=== PATIENT | female | born 2000 | race Caucasian/White ===

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

== ENCOUNTER 2021-04-04 14:21 | Emergency (ER) | payer BC, MEDICAID, SELFPAY ==
[2021-04-04 15:00] VITALS: BP 140/74; PULSE 80; RESP 16; TEMP 36.7; O2SAT 100
--- NOTE | 2021-04-04 15:03 | ED.GENADUL_ITS ---
Discharge Plan Disposition Patient Disposition: OTHER Condition: Stable Discharge Details Clinical Impression: Anxiety, Depressive disorder Primary Care Provider: Valorie Tapia ED Provider: Imelda Adames Home Meds and New Rx's Prescriptions: Continued L norgest/e.estradiol-e.estrad [Seasonique] 0.15 mg-30 mcg (84)/10 mcg (7) tablets,dose pack,3 month 1 tab PO DAILY Qty: 91 RF: 3 cholecalciferol (vitamin D3) 1,000 unit capsule 1,000 unit PO DAILY RF: 0 amitriptyline 10 mg tablet 10 mg PO QHS Qty: 30 RF: 1 (DME) Space Chamber Plus 1 EACH spacer Miscellaneous PRN Qty: 1 RF: 0 albuterol sulfate [ProAir HFA] 90 mcg/actuation HFA aerosol inhaler 1 - 2 puff Inhalation Q4H PRN Qty: 18 RF: 1 fluoxetine 20 mg capsule 20 mg PO DAILY Qty: 90 RF: 1 Discharge Instructions Instructions: Depression (ED), Anxiety (ED) Additional Instructions: Your labs and evaluation are reassuring here today. Plan is for you to be transferred to the care bed the time being for continued treatment and monitoring of your anxiety and depression. Please continue with your medications as previously prescribed. Please call primary care tomorrow to discuss your increased dose of fluoxetine. If you develop thoughts of self-harm or other new/worsening symptoms please seek care urgently once again. Referrals: Valorie Tapia [Primary Care Provider] - Medical Decision Making Patient is a pleasant 20-year-old female, brought in by mom, with chief complaint of increased anxiety and depression. She reports that this has been increasing over the past calendar year. 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 She did feel home. No focal structure causing an increase in her symptoms. She is followed by her primary care. States that she did have her fluoxetine increased recently from 20 mg to 40 mg daily. She denies being sexually active. Denies any drug or alcohol use. States that she has been vomiting for the past several months. Was recently referred to GI. She is actually still producing vomiting. She is unable to tell me fully if she is doing this secondary to nausea or concerns about her weight. Sounds like this may be a mix of both. Patient presents for mental health evaluation. She states that she occasionally will think about harming herself but that ultimately did not want to. She did not have a plan. She has been working with mental health would like to continue to do so. She denies any hallucinations. No thoughts of harming others. Denies any open wounds or attempt. No previous hospitalizations for mental health. Has had 2 concussions. She denies any continued headache. On exam, patient is anxious. She appears nontoxic. Vital signs are stable. Will consult with mental health. Patient is with mom. Mom reports that she is concerned that she stopped taking care. With much and stop on to work. Patient reports that she does not really like her child but that she is typically not motivated to go. Mom is also concerned that she stopped showering care of her symptoms much. States that she is beginning to be financially stressed. I am concerned with the vomiting for the past several month that she may have an electrolyte abnormality. Plan for baseline labs. She is denying any threat to herself or others intermittently and typically she has fair judgment. We will have mental health be involved evaluate the patient as well. I am concerned that she is not having good personal care as was expressed by mom. Do not feel the patient needs a CPSO at this time as she is not a threat to herself or others. Has good interaction with mom who is at bedside. Patient evaluated by mental health. They discussed treatment options. Here that she would benefit the most from a care bed. Patient reported that she had an increase in fluoxetine but found that she had actually done this herself. Patient had previously been on 40 mg but has been at 20 mg the past few years. Recently however, she increased to 40 without discussing first with her primary care. Patient was evaluated by primary care few days ago for her increased depression, anxiety as well as issues with IBS. At that time, patient was started on amitriptyline 10 mg nightly. Mental health is concerned that this medication has not had an time to set in. Patient does do better in the presence of others and her roommate had recently gone off to college. I did help feels that with the patient is not imminent risk to herself or others, she would benefit from placement to care bed and patient is in agreement with this plan. Will obtain rapid Covid testing. Bed is available for patient to be able to go to the care bed this evening. Passed along to that I am concerned that she may have an undiagnosed eating disorder. Patient not very forth coming with this, I asked it be explored more with . Labs reviewed. Patient with slight white count of 11.25. However, she denies any infectious symptoms, do not see findings on physical exam suggests acute infection. CMP without significant endocrinology. TSH within normal limits. Urinalysis does show WBCs, few epithelial cells and many bacteria. However, the patient is denying any symptoms associated with a UTI. Hold off on testing until the culture has come back. UDS is negative. Covid is negative. Patient will be discharged to care bed. Discussed plan at length with patient and mom. REturn precautions discussed. All of their quedstions and concerns were addressed, they are in agreement with this plan. HPI General Mode of arrival: ambulatory . Date/Time Provider Initiated Documentation: 04/04/21 14:30 . Limitations to Documentation: no limitations . Information obtained by: patient, family (mom), RN notes reviewed and old records reviewed . History of Present Illness 20 year old F presents to the emergency department with the chief complaint of increased anxiety and depr ession, described as moderate (denies SI or HI), Quality is described as other (denies BAE or other pain), Patient started experiencing this year(s) (1) and it has been constant (progressively worsening). other things that improve symptom(s), (stayed with family over the weekend and felt improved) No exacerbating factors reported . Patient notes no other symptoms.. Patient did receive the following treatments prior to arrival, other (antidepressants) Related Data Home Medications Medication Instructions Recorded Confirmed Space Chamber Plus #1 05/24/17 12/28/20 cholecalciferol (vitamin D3) 25 1,000 unit PO DAILY 07/24/18 12/28/20 mcg (1,000 unit) capsule albuterol sulfate 90 mcg/actuation 1 - 2 puff INHALATION Q4H PRN #18 02/20/19 12/28/20 aerosol inhaler gm L norgest/E estradiol-E estrad 1 tab PO DAILY #91 dose pk 05/20/20 03/31/21 0.15 mg-30 mcg (84)/10 mcg(7) tabs,3mos fluoxetine 20 mg capsule 20 mg PO DAILY #90 cap 02/25/21 amitriptyline 10 mg tablet 10 mg PO QHS #30 tab 03/31/21 03/31/21 Previous Rx's Medication Instructions Recorded albuterol sulfate 90 mcg/actuation 1 - 2 puff INHALATION Q4H PRN #18 02/20/19 aerosol inhaler gm L norgest/E estradiol-E estrad 1 tab PO DAILY #91 dose pk 05/20/20 0.15 mg-30 mcg (84)/10 mcg(7) tabs,3mos fluoxetine 20 mg capsule 20 mg PO DAILY #90 cap 02/25/21 amitriptyline 10 mg tablet 10 mg PO QHS #30 tab 03/31/21 Allergies Allergy/AdvReac Type Severity Reaction Status Date / Time No Known Allergies Allergy Verified 04/04/21 19:21 General MARTA: 3 Review of Systems Constitutional Constitutional: Reports as per HPI, Denies chills, Denies fatigue, Denies fever(s) and Denies headache(s) Eyes Eyes: Denies change in vision and Reports other (anisocoria, reported to be baseline) ENT Ears, Nose, Mouth, and Throat: Denies headache(s) Cardiovascular Cardiovascular: Reports as per HPI, Denies chest pain and Denies dyspnea Respiratory Respiratory: Reports as per HPI, Denies cough and Denies dyspnea Gastrointestinal Gastrointestinal: Reports as per HPI, Denies abdominal pain, Denies change in bowel habits, Reports nausea (chronic) and Reports vomiting (self induced) Integumentary/Breasts Skin/Breast: Reports as per HPI and Denies rash Neurologic Neurologic: Reports abnormal movements, Denies confusion and Denies headache(s) Psychiatric Psychiatric: Reports abnormal sleep pattern (increased sleep), Denies change in appetite, Denies confusion, Reports depression, Denies auditory hallucinations, Reports anhedonia, Reports mood swings, Denies panic attacks, Denies paranoia, Denies visual hallucinations, Denies homicidal ideation and Denies suicidal ideation Endocrine Endocrine: Denies fatigue PFSH Medical History (Updated 04/04/21 @ 19:15 by ALECIA Vasquez) Anxiety Depression Exercise induced bronchospasm Learning problem HAS 504 AT SCHOOL Vision problem WEARS CONTACTS Family History Sister Seizure disorder BIO MOTHER Family history unknown Diabetes Seizure disorder Other Mental disorder Social History Smoking/Tobacco Use Status: Never Second Hand Exposure: No Smoking risk assessment performed?: Yes Alcohol Intake: never Drug use: Never Substance use type: does not use Adopted: Yes (At age 10) Household members: friend(s) Communication Needs: Corrective Lenses Pets and animals: Yes Pets and animals: dog(s) Seatbelt use: always Working smoke detector in home: Yes Fire extinguisher in home: Yes Carbon monox detector in home: Yes Additional Social history: pt is not alone, not able to answer Female Reproductive History Menstrual control method: pills History History 0 Para Hx # Term Pregnancies Multiple births Hx # Pregnancies Ectopic pregnancies AB induced Hx Number of Living Children AB spontaneous Exam Const General: cooperative, healthy appearing, comfortable, no acute distress, well developed, well groomed and anxious Nutritional Appearance: well nourished and overweight Orientation: alert and awake Eyes General: appearance normal, both eyes and all related structures (anisocoria) Resp Effort & Inspection: normal respiratory effort, able to speak in complete sentences and no respiratory distress Auscultation: clear to auscultation bilaterally, no rales, no rhonchi and no wheezes Cardio Rate: regular rate Rhythm: regular rhythm Heart Sounds: S1 normal and S2 normal Skin General skin exam: no rashes or lesions noted Trauma: no lacerations or abrasions Neuro General: patient alert and patient awake Cognition: normal cognition Speech: speech normal Gait: normal gait Psych Appearance: grossly normal and well kempt Mental Status: mental status grossly normal Speech and Movement: speech and movement normal Mood: congruent mood Affect: anxious affect Attitude: cooperative Thought Process: normal Thought Content: normal Insight: fair Judgment: fair
[2021-04-04 16:16] LABS: HCT 41.9 % (36.0-46.0); HGB 13.6 g/dL (11.2-15.7); MCH 29.3 pg (27.0-33.0); MCHC 32.5 % (32.0-36.0); MCV 90.3 fL (80-95); MPV 8.6 fL (8.0-11.0); Platelet Count 426 10^3/uL (130-400); RBC 4.64 10^6/uL (3.93-5.22); WBC 11.25 10^3/uL (4.4-10.8)
[2021-04-04 16:47] LABS: ALT 25 U/L (14-59); AST 14 U/L (15-37); Albumin 3.8 g/dL (3.4-5.0); Alkaline Phosphatase 67 U/L (46-116); Anion Gap 10.9 mmol/L (3-11); BUN 10 mg/dL (7-18); Bilirubin, Total 0.2 mg/dL (0.2-1.0); CO2 27.1 mmol/L (21.0-32.0); CREATININE 0.8 mg/dL (0.55-1.02); Calcium 9.6 mg/dL (8.5-10.1); Chloride 101 mmol/L (98-107); Glucose 74 mg/dL (74-106); Potassium 3.9 mmol/L (3.5-5.1); Sodium 139 mmol/L (136-145); TSH (W/Ref FT4) 3.02 uIU/mL (0.52-4.13); Total Protein 8.8 g/dL (6.4-8.2)
[2021-04-04 17:55] LABS: Bilirubin Negative (Negative); Blood Trace-intact (Negative); Clarity Cloudy (Clear); Glucose Negative (Negative); Ketones Negative (Negative); Leukocyte Esterase Trace (Negative); Nitrite Negative (Negative); Specific Gravity 1.025 (1.005-1.025); Urobilinogen 0.2 EU/dL (Up TO 0.2)
[2021-04-04 18:01] LABS: Bacteria Many HPF (Negative); C & S Indicated? Yes; Casts Negative LPF (Negative); Crystals Negative HPF (Negative); Epithelial Cells Few HPF (Negative); Mucus Negative (Negative)
[2021-04-04 18:03] LABS: Source Nasal/Nares
[2021-04-04 18:05] LABS: *AMPHETAMINES SCREEN URINE Negative (Negative); *BARBITURATES SCREEN URINE Negative (Negative); *BENZODIAZEPINES SCREEN URINE Negative (Negative); Cannabinoids THC Negative (Negative); Cocaine Screen,Urine Negative (Negative); METHADONE URINE SCREEN Negative (Negative); OPIATES URINE SCREEN Negative (Negative)
[2021-04-04 18:18] LABS: Tricyclic Antidepressants Negative (Negative)
[2021-04-04 18:57] LABS: COVID-19 PCR Negative (Negative)
== END 2021-04-04 20:29 | disposition other institution (70) ==
PROVIDERS: Emergency Provider Physician Assistant; PCP Nurse Practitioner Pediatrics
DX: F41.8 Other specified anxiety disorders (principal); Z20.822 Contact with and (suspected) exposure to COVID-19; Z03.818 Encounter for observation for suspected exposure to other biological agents ruled out
CPT/HCPCS: 36415; 80053; 80307; 81025; 85027; 87635; 99283; 81003; 81015; 84443; 87086

== ENCOUNTER 2021-10-12 15:26 | Outpatient (CLI) | payer BC, MEDICAID, SELFPAY ==
[2021-10-12 16:03] LABS: Calculated LDL 126 mg/dL (<100); Cholesterol 224 mg/dL (<200); HDL Cholesterol 50 mg/dL (40-60); Triglyceride 240 mg/dL (<150)
== END 2021-10-12 15:27 | disposition home or self-care (01) ==
LOC: LBO 15:32
PROVIDERS: PCP Nurse Practitioner Pediatrics; Visit Provider Nurse Practitioner Pediatrics
DX: E78.5 Hyperlipidemia, unspecified (principal)
CPT/HCPCS: 36415; 80061

== ENCOUNTER 2021-10-25 19:59 | Emergency (ER) | payer BC, MEDICAID, SELFPAY ==
[2021-10-25] VITALS (98 sets, daily range): BP systolic 109–150; BP diastolic 68–94; PULSE 82–116; RESP 11–31; TEMP 36.5–36.6; O2SAT 96–100
--- NOTE | 2021-10-25 20:00 | DI.CT_ITS ---
Exam(s) CT ABDOMEN PELVIS W EXAM: CT ABDOMEN PELVIS W INDICATION: right and left lower abdominal pain, vomiting. COMPARISON: No exams were available for comparison TECHNIQUE: FINDINGS: CT examination of the abdomen and pelvis was performed with a bolus infusion of 80 cc of Omnipaque 35 0. Images obtained through the lung bases are unremarkable. The liver is unremarkable in appearance. Gallbladder and bile ducts are CT normal. Pancreas appears normal. Spleen is unremarkable in appearance. Adrenals appear normal. The kidneys are unremarkable except for a tiny left renal cyst with no evidence of hydronephrosis, ne phrolithiasis, or renal mass.. Urinary bladder unremarkable. Abdominal aorta is of normal diameter and no major vascular abnormality is seen. No abdominal wall hernia. No abdominal or pelvic adenopathy. HOSPICE CONSULTANT structures appear intact. Appendix is normal. No evidence of diverticulitis or bowel obstruction. IMPRESSION: Negative CT examination of the abdomen and pelvis. RADIATION DOSE DELIVERED: 1,425.23mGy.cm Total DLP 1,425.23mGy.cm Total DLP !Error CTDIvol RADIATION OPTIMIZATION: All CT scans at this facility use at least one of these dose optimization te chniques: automated exposure control; mA and/or kV adjustment per patient size (includes targeted exa ms where dose is matched to clinical indication); or iterative reconstruction.
--- NOTE | 2021-10-25 20:08 | DI.CT_ITS ---
Exam(s) CT HEAD WO/W EXAM: CT HEAD WO/W CLINICAL HISTORY: headache, vomiting, altered. TECHNIQUE: Imaging Protocol: Axial computed tomography images with coronal and sagittal reformatted images were created and reviewed Post contrast scanning was also performed following intravenous infusion of 100 cc of Omnipaque 350. COMPARISON: CT CT HEAD WO from 05/28/2020 FINDINGS: The ventricular system is normal in appearance. There is no evidence of an intracranial mass lesion or enhancing lesion. No evidence of acute intracranial hemorrhage, mass effect, or midline shift. The orbital structures are unremarkable. The temporal bone structures appear intact. Calvarium: Normal. Visualized Paranasal sinuses/Mastoids: Clear. IMPRESSION: Normal cranial CT. RADIATION DOSE DELIVERED: 1,703.94mGy.cm Total DLP 1,703.94mGy.cm Total DLP !Error CTDIvol DATA REPOSITORY: All CT scans at this facility are submitted to the National Radiology Data Registry (NRDR) Dose Index Registry (DIR) with the [employer] ([employer]). RADIATION OPTIMIZATION: All CT scans at this facility use at least one of these dose optimization te chniques: automated exposure control; mA and/or kV adjustment per patient size (includes targeted exa ms where dose is matched to clinical indication); or iterative reconstruction.
--- NOTE | 2021-10-25 20:12 | W.ED.GENAD ---
Discharge Plan Disposition Patient Disposition: HOME Condition: Good Discharge Details Clinical Impression: Post concussion syndrome, Nausea & vomiting Primary Care Provider: Valorie Tapia ED Provider: Anatoliy Pettit Home Meds and New Rx's Prescriptions: Continued cholecalciferol (vitamin D3) 1,000 unit capsule 1,000 unit PO DAILY 0RF amitriptyline 25 mg tablet 25 mg PO QHS Qty: 30 5RF Rx Instructions: take one tablet once a day at bedtime fluoxetine 20 mg capsule 20 mg PO DAILY Qty: 30 1RF Rx Instructions: take 1 capsule daily along with fluoxetine 40 mg L norgest/e.estradiol-e.estrad [Seasonique] 0.15 mg-30 mcg (84)/10 mcg (7) tablets,dose pack,3 month 1 tab PO DAILY Qty: 182 0RF fluoxetine 40 mg capsule 40 mg PO DAILY Qty: 30 1RF Rx Instructions: take one capsule once a day Discharge Instructions Instructions: Acute Nausea and Vomiting (ED) Additional Instructions: At this time your CAT scan of your head and abdomen are negative. Your laboratory work-up is reassuring. I feel that a component of your symptoms is likely secondary to your previous concussions. You likely have a mild virus that is causing your symptoms or it was from something that you ate today. Please take Tylenol or Motrin as needed to help with your headache if it returns. Please take the Zofran as needed for nausea. If you notice any worsening of your symptoms, or any new symptoms such as vomiting, diarrhea, fever, chills, shortness of breath, chest pain, numbness, weakness, or fainting , please return immediately to the emergency department for reevaluation. Please follow up with your primary care provider as soon as possible for reassessment and reevaluation. As always, it was a pleasure participating in your medical care today. Stand Alone Forms: Work Release Referrals: Valorie Tapia NP [Primary Care Provider] - Medical Decision Making This is a 21-year-old female with a past medical history of high cholesterol, irritable bowel syndrome, depression, anxiety, who is currently on control, who presents today for evaluation of abdominal pain vomiting and headache. Patient's friend is at bedside. They state that they went to [place] [employer] today and were shopping, they had a normal day, and went out to eat at the [employer], and then on the drive back from work on weight the patient started vomiting had few episodes of vomiting. She became slightly altered during that time. She was brought to the ER for further evaluation. Currently the patient admits to pain in her lower abdomen which she describes as sharp and constant. She describes a mild headache as well. This is not the worst headache in her life. States that she does have a history of migraines but this feels slightly different. Headache is achy in nature, and throughout the entirety of the head. She denies any significant neck pain. She denies any chest pain, numbness, tingling, or weakness. She denies any vision changes. She denies any drug or alcohol use. No other complaints at this time. No other modifying. Of note the patient's friend states that she ate the same food and feels asymptomatic. Physical exam demonstrates some chronic anisocoria of the eyes, no nuchal rigidity. Mild lower abdominal tenderness. Patient is slightly out of it. She responds all questions, follows all commands, and shows no focal neurologic deficits however she does not know the year or who the president is. Differential is broad, but includes dehydration, migraine headache, less likely brain tumor, gastroenteritis, or other abnormality. Drug use is of concern but less likely given the negative history. We will rehydrate, get a CT scan of the head and abdomen, monitor closely and reassess. 11:50 PM Patient's laboratory work-up has returned notably unremarkable, no white count, bandemia or left shift. Blood pressure is normalized, heart rate has normalized, and on reassessment the patient states that she feels much better. States she only has a very mild headache, and her abdominal pain is resolved. Electrolytes stable, VBG stable, ammonia normal. Thyroid function demonstrates an elevated TSH however her free T4 is normal. Urine is negative for any evidence of infection. Alcohol level is negative, COVID/flu/RSV is negative. On reassessment the patient's mentation is notably improved. I did contact the patient's mother, for additional historical context that the patient was not able to had. Patient did give me permission to do this. And upon discussion with the mother there is also history of a notable closed head injury a few years ago at lacrosse. Since then the patient has had notable episodes where she gets hit in the head lightly, moves her head too quickly, or has some other mild illness going on that causes her to become confused, did not know the year, the president, or other components. She also develops chronic headaches and these episodes. This showed significant light on the current presentation that the patient is demonstrating. At this time with a notable improvement of her symptoms, the benign work-up, no meningeal signs or clinical evidence of meningitis, I do feel that the patient is safe for discharge. Patient does agree with this as well. She will go home with a roommate and both the roommate the patient feel comfortable with this. Patient was able to tolerate p.o. well here. Diagnosis is likely mild gastroenteritis either viral or secondary to something that showed. Likely worsened by the patient history of closed head injury frequent mild exacerbations of those previous concussion symptoms. Discussed red flags which return. Recommend close follow-up with PCP. I have extensively reviewed the treatment plan and discharge instructions with the patient and their family. I have addressed all patient concerns at this time. The patient and family was made aware of what symptoms to monitor for that would warrant a return to the emergency department. Discussed the plan with the patient and family, they demonstrate verbal understanding and agreement with our assessment and plan at this time. The documentation in this chart was dictated using [employer] dictation software. Please excuse any dictation errors. FINDINGS: Brain: No acute intracranial hemorrhage, mass-effect, midline shift, or extra-axial collection is seen. The michelle white matter differentiation appears preserved. No enhancing mass or other abnormal intracranial enhancement is seen following contrast administration. Cerebral ventricles: The ventricular system and basilar cisterns appear appropriate in size and configuration. Paranasal sinuses: The visualized paranasal sinuses appear well-aerated. Mastoid air cells: The mastoid air cells appear well-aerated. Auditory system: The middle ear cavities appear clear. Orbital cavities: The globes and intraorbital structures appear grossly intact. Bones/joints: The bony calvarium appears intact. No depressed skull fracture is seen. Soft tissues: No significant scalp lesion is seen. IMPRESSION: No acute intracranial abnormality seen. Thank you for allowing us to participate in the care of your patient. Dictated and Authenticated by: Thomas Saba MD 10/25/2021 9:56 PM Eastern Time ([place] & [place]) FINDINGS: Liver: No mass. Gallbladder and bile ducts: No calcified stones. No ductal dilation. Pancreas: No ductal dilation. No masses. Spleen: No splenomegaly or focal lesions. Adrenal glands: No mass. Kidneys and ureters: Benign-appearing small left renal cysts. No renal masses or hydronephrosis bilaterally. Stomach and bowel: No obstruction. No mucosal thickening. Appendix: No evidence of appendicitis. Intraperitoneal space: No free air. No significant fluid collection. Arteries: Unremarkable. No abdominal aortic aneurysm. Lymph nodes: No significantly enlarged lymph nodes. Urinary bladder: Unremarkable as visualized. Reproductive: Unremarkable as visualized. Bones/joints: No acute fracture. Soft tissues: No suspicious lesions. IMPRESSION: No acute findings. Thank you for allowing us to participate in the care of your patient. Dictated and Authenticated by: Kamla Slade MD 10/25/2021 10:22 PM Eastern Time ([place] & [place]) HPI General Date/Time Provider Initiated Documentation: 10/25/21 20:01. HPI Narrative: This is a 21-year-old female with a past medical history of high cholesterol, irritable bowel syndrome, depression, anxiety, who is currently on control, who presents today for evaluation of abdominal pain vomiting and headache. Patient's friend is at bedside. They state that they went to [place] today and were shopping, they had a normal day, and went out to eat at the [employer], and then on the drive back from work on weight the patient started vomiting had few episodes of vomiting. She became slightly altered during that time. She was brought to the ER for further evaluation. Currently the patient admits to pain in her lower abdomen which she describes as sharp and constant. She describes a mild headache as well. This is not the worst headache in her life. States that she does have a history of migraines but this feels slightly different. Headache is achy in nature, and throughout the entirety of the head. She denies any significant neck pain. She denies any chest pain, numbness, tingling, or weakness. She denies any vision changes. She denies any drug or alcohol use. No other complaints at this time. No other modifying. Of note the patient's friend states that she ate the same food and feels asymptomatic. Related Data Home Medications Medication Instructions Recorded Confirmed cholecalciferol (vitamin D3) 25 1,000 unit PO DAILY 07/24/18 10/25/21 mcg (1,000 unit) capsule L norgest/E estradiol-E estrad 1 tab PO DAILY #182 dose pk 05/26/21 10/25/21 0.15 mg-30 mcg (84)/10 mcg(7) tabs,3mos (Seasonique) fluoxetine 40 mg capsule 40 mg PO DAILY #30 cap 08/24/21 10/25/21 amitriptyline 25 mg tablet 25 mg PO QHS #30 tab 10/05/21 10/25/21 fluoxetine 20 mg capsule 20 mg PO DAILY #30 cap 10/05/21 10/25/21 Previous Rx's Medication Instructions Recorded L norgest/E estradiol-E estrad 1 tab PO DAILY #182 dose pk 05/26/21 0.15 mg-30 mcg (84)/10 mcg(7) tabs,3mos (Seasonique) fluoxetine 40 mg capsule 40 mg PO DAILY #30 cap 08/24/21 amitriptyline 25 mg tablet 25 mg PO QHS #30 tab 10/05/21 fluoxetine 20 mg capsule 20 mg PO DAILY #30 cap 10/05/21 Allergies Allergy/AdvReac Type Severity Reaction Status Date / Time No Known Allergies Allergy Verified 10/25/21 20:56 General Stated Complaint: Nausea/Vomit/Diar MARTA: 3 Review of Systems All systems reviewed & are unremarkable except as noted in HPI and below PFSH All Active Problems (Updated 10/25/21 @ 23:17 by Anatoliy Pettit DO) Post concussion syndrome (Acute) Nausea & vomiting (Acute) Menorrhagia with regular cycle (Acute) History of IBS (Acute) Disrupted sleep-wake cycle (Acute) Snoring (Acute) Adjustment reaction with anxiety and depression (Acute) Hyperlipidemia (Chronic) total 278 LDL 188 and HDL 64 12/2020 Hyperpigmentation (Acute) sib has CARP Low back pain (Acute) Hematochezia (Acute) Diarrhea (Acute) High serum low density lipoprotein (LDL) cholesterol (Acute) Exercise induced bronchospasm (Acute) Routine child health exam (Acute 11/17/16) Reactive attachment disorder (Acute 03/04/14) Ongoing therapy Depressive disorder (Acute 10/22/15) Back pain (Acute 03/04/14) BMI (body mass index), pediatric, 95-99% for age (Acute 03/04/14) Anxiety (Acute 10/22/15) Medical History (Updated 10/25/21 @ 23:17 by Anatoliy Pettit DO) Anxiety Depression Learning problem HAS 504 AT SCHOOL Vision problem WEARS CONTACTS Family History Sister Seizure disorder BIO MOTHER Family history unknown Diabetes Seizure disorder Other Mental disorder Social History Smoking/Tobacco Use Status: Never Second Hand Exposure: No Smoking risk assessment performed?: Yes Alcohol Intake: never Drug use: Never Substance use type: does not use Adopted: Yes (At age 10) Household members: friend(s) Communication Needs: Corrective Lenses Pets and animals: Yes Pets and animals: dog(s) Seatbelt use: always Working smoke detector in home: Yes Fire extinguisher in home: Yes Carbon monox detector in home: Yes Additional Social history: pt is not alone, not able to answer Female Reproductive History Menstrual control method: pills History History 0 Para Hx # Term Pregnancies Multiple births Hx # Pregnancies Ectopic pregnancies AB induced Hx Number of Living Children AB spontaneous Exam Narrative Exam Narrative: 1.Const: Well-nourished, Well-developed, appearing stated age 2.Eyes: PRRL, however the patient does demonstrate slight chronic anisocoria with dilation of the left pupil which is old and not new. No conjunctival injection, and symmetrical lids. 3.ENT: Atraumatic external nose and ears. Moist MM. Neck: Symmetric, trachea midline, No thyromegaly. Patient demonstrates good movement of cervical neck. There is no nuchal rigidity, no nuchal tenderness. Patient is able to flex the neck without any difficulty or significant pain. Negative Kernig's and Brudzinski sign. 4.CVS: +S1/S2, No murmurs or gallops. Peripheral pulses 2+ and equal in all extremities. Brisk capillary refill in all extremities. 5.RESP: Unlabored respiratory effort. Clear to auscultation bilaterally. No wheezes rales or rhonchi 6.GI: Soft, Nondistended, No hepatosplenomegaly. No guarding or rebound. Mild tenderness in the lower abdomen on palpation. 7.MSK: Normocephalic/Atraumatic, Extremities w/o deformity or ttp No cyanosis or clubbing, Normal movement of all extremities 8.Skin: Warm, Dry. No rashes or lesions. 9.Neuro: radioisotope technologist II-XII grossly intact. Sensation grossly intact, no focal neurologic deficits. 10.Psych: (AAO) x1. Slightly flat affect. She does not know the president or the current year. Course Vital Signs Vital signs: Vital Signs Temperature 36.6 C 10/25/21 20:02 Pulse 102 H 10/25/21 20:02 Respiratory Rate 18 10/25/21 20:02 Blood Pressure 150/94 H 10/25/21 20:02 Pulse Oximetry 100 10/25/21 20:02 Temperature 36.6 C 10/25/21 20:02 Pulse 102 H 10/25/21 20:02 Respiratory Rate 18 10/25/21 20:02 Respiratory Effort 10/25/21 20:07 Blood Pressure 150/94 H 10/25/21 20:02 Pulse Oximetry 100 10/25/21 20:02 Oxygen Delivery Method Room Air 10/25/21 20:02 Oxygen Flow Rate 0 10/25/21 20:02 Pain Level 4 10/25/21 20:02
[2021-10-25 20:40] LABS: Bilirubin Negative (Negative); Blood Negative (Negative); Clarity Cloudy (Clear); Glucose Negative (Negative); Ketones Negative (Negative); Leukocyte Esterase Negative (Negative); Nitrite Negative (Negative); Specific Gravity >= 1.030 (1.005-1.025); Urobilinogen 0.2 EU/dL (Up TO 0.2)
[2021-10-25 20:48] LABS: BE (Venous) 1 mmol/L (-2-3); HCO3 (Venous) 26 mmol/L (23-28); O2 Sat (Venous) 59 %; TCO2 (Venous) 24 mmol/L (24-29); pCO2 (Venous) 44 mmHg (41-51); pH (Venous) 7.39 (7.31-7.41); pO2 (Venous) 32 mmHg
[2021-10-25] MEDS: Normal Saline 1,000 ML 1000 ML IV (20:49)
[2021-10-25] MEDS: Ondansetron 4 MG/2 ML VIAL IVP (20:49)
[2021-10-25 20:50] LABS: Abs Immature Grans 0.04 10^3/uL (0.0-0.06); Absolute Basophil Count 0.04 10^3/uL (0.0-0.2); Absolute Eosinophil Count 0.16 10^3/uL (0.0-0.7); Absolute Lymphocyte Count 3.97 10^3/uL (1.2-3.4); Absolute Monocyte Count 0.66 10^3/uL (0.1-0.8); Basophils % 0.4; Eosinophils % 1.6; HCT 40.8 % (36.0-46.0); HGB 13.3 g/dL (11.2-15.7); Immature Grans % 0.4; Lymphocytes % 40.2; MCH 29.2 pg (27.0-33.0); MCHC 32.6 % (32.0-36.0); MCV 89.7 fL (80-95); MPV 8.6 fL (8.0-11.0); Monocytes % 6.7; Neutrophils % 50.7; Platelet Count 387 10^3/uL (130-400); RBC 4.55 10^6/uL (3.93-5.22); RDW 12.2 % (11.7-14.6); WBC 9.87 10^3/uL (4.4-10.8)
[2021-10-25 21:02] LABS: *AMPHETAMINES SCREEN URINE Negative (Negative); *BARBITURATES SCREEN URINE Negative (Negative); *BENZODIAZEPINES SCREEN URINE Negative (Negative); Cannabinoids THC Negative (Negative); Cocaine Screen,Urine Negative (Negative); METHADONE URINE SCREEN Negative (Negative); OPIATES URINE SCREEN Negative (Negative)
[2021-10-25 21:04] LABS: Ammonia 30 umol/L (11-32)
[2021-10-25 21:10] LABS: Tricyclic Antidepressants Positive (Negative)
[2021-10-25 21:17] LABS: ALT 26 U/L (14-59); AST 18 U/L (15-37); Albumin 3.6 g/dL (3.4-5.0); Alkaline Phosphatase 73 U/L (46-116); Anion Gap 8.3 mmol/L (3-11); BUN 12 mg/dL (7-18); Bilirubin, Total 0.2 mg/dL (0.2-1.0); CO2 25.7 mmol/L (21.0-32.0); CREATININE 0.8 mg/dL (0.55-1.02); Calcium 8.8 mg/dL (8.5-10.1); Chloride 101 mmol/L (98-107); Glucose 86 mg/dL (74-106); Lipase 115 U/L (73-393); Potassium 3.5 mmol/L (3.5-5.1); Sodium 135 mmol/L (136-145); Total Protein 8.2 g/dL (6.4-8.2)
[2021-10-25] MEDS: Omnipaque 350 MG/ML 100 ML BTL IJ ×2 (21:29→21:49)
[2021-10-25] MEDS: Normal Saline Flush 10 ML SYR IVP ×2 (21:30→21:51)
[2021-10-25 21:32] LABS: Acetaminophen < 2 ug/mL (10-30); Salicylate 3.6 mg/dL (<2.8)
[2021-10-25 21:33] LABS: ETHANOL BLOOD < 3.0 mg/dL (<10)
[2021-10-25 21:46] LABS: COVID-19 PCR Negative (Negative); Influenza A PCR Negative (Negative); Influenza B PCR Negative (Negative); RSV PCR Negative (Negative)
[2021-10-25 21:50] LABS: FREE T4 0.87 ng/dL (0.76-1.46)
--- NOTE | 2021-10-25 21:56 | DI.VRAD_ITS ---
PROCEDURE INFORMATION: Exam: CT Head Without And With Contrast Exam date and time: 10/25/2021 9:22 PM Age: 21 years old Clinical indication: Pain; Altered mental status/memory loss; Confusion or disorientation; Headache not specified; Patient HX: Headache, vomiting, altered TECHNIQUE: Imaging protocol: Computed tomography of the head without and with intravenous contrast. Radiation optimization: All CT scans at this facility use at least one of these dose optimization techniques: automated exposure control; mA and/or kV adjustment per patient size (includes targeted exams where dose is matched to clinical indication); or iterative reconstruction. Contrast material: OMNIPAQUE 350; Contrast volume: 100 ml; Contrast route: INTRAVENOUS (IV); COMPARISON: CT HEAD WO 05/28/2020 4:34 PM FINDINGS: Brain: No acute intracranial hemorrhage, mass-effect, midline shift, or extra-axial collection is seen. The michelle white matter differentiation appears preserved. No enhancing mass or other abnormal intracranial enhancement is seen following contrast administration. Cerebral ventricles: The ventricular system and basilar cisterns appear appropriate in size and configuration. Paranasal sinuses: The visualized paranasal sinuses appear well-aerated. Mastoid air cells: The mastoid air cells appear well-aerated. Auditory system: The middle ear cavities appear clear. Orbital cavities: The globes and intraorbital structures appear grossly intact. Bones/joints: The bony calvarium appears intact. No depressed skull fracture is seen. Soft tissues: No significant scalp lesion is seen. IMPRESSION: No acute intracranial abnormality seen. Dictated and Authenticated by: Thomas Saba MD. Ordering:SANCHO Cope MD
[2021-10-25 22:07] LABS: Source Nasopharynx
--- NOTE | 2021-10-25 22:23 | DI.VRAD_ITS ---
PROCEDURE INFORMATION: Exam: CT Abdomen And Pelvis With Contrast Exam date and time: 10/25/2021 21:41 Age: 21 years old Clinical indication: Localized; Patient HX: Right and left lower abdominal pain, vomiting TECHNIQUE: Imaging protocol: Computed tomography of the abdomen and pelvis with contrast. Radiation optimization: All CT scans at this facility use at least one of these dose optimization techniques: automated exposure control; mA and/or kV adjustment per patient size (includes targeted exams where dose is matched to clinical indication); or iterative reconstruction. Contrast material: OMNIPAQUE 350; Contrast volume: 85 ml; Contrast route: INTRAVENOUS (IV); COMPARISON: US pelvis renal 07/26/2018 10:55 FINDINGS: Liver: No mass. Gallbladder and bile ducts: No calcified stones. No ductal dilation. Pancreas: No ductal dilation. No masses. Spleen: No splenomegaly or focal lesions. Adrenal glands: No mass. Kidneys and ureters: Benign-appearing small left renal cysts. No renal masses or hydronephrosis bilaterally. Stomach and bowel: No obstruction. No mucosal thickening. Appendix: No evidence of appendicitis. Intraperitoneal space: No free air. No significant fluid collection. Arteries: Unremarkable. No abdominal aortic aneurysm. Lymph nodes: No significantly enlarged lymph nodes. Urinary bladder: Unremarkable as visualized. Reproductive: Unremarkable as visualized. Bones/joints: No acute fracture. Soft tissues: No suspicious lesions. IMPRESSION: No acute findings. Dictated and Authenticated by: Kamla Slade MD. Ordering:SANCHO Cope MD
[2021-10-25] MEDS: Metoclopramide 10 MG/2 ML VIAL IVP (23:00)
[2021-10-25] MEDS: Ketorolac 15 MG/ML VIAL IVP (23:27)
[2021-10-25] MEDS: Ondansetron O.D.T. 4 MG TABEF, 3 TABS/BTL PO (23:28)
== END 2021-10-25 23:44 | disposition home or self-care (01) ==
PROVIDERS: Emergency Provider Student in an Organized Health Care Education/Training Program; PCP Nurse Practitioner Pediatrics
DX: R11.2 Nausea with vomiting, unspecified (principal); F07.81 Postconcussional syndrome; R41.82 Altered mental status, unspecified; R10.31 Right lower quadrant pain; R10.32 Left lower quadrant pain; Z79.899 Other long term (current) drug therapy; F32.9 Major depressive disorder, single episode, unspecified; R51.9 Headache, unspecified
CPT/HCPCS: 36416; 80053; 80307; 81025; 82805; 82962; 83690; 87637; 96361; 96374; 96375; 99285; 70470; 74177; 80320; 80329; 81003; 82140; 84439; 84443; 85025; J1885; J2405; J2765; J3490

== ENCOUNTER 2021-12-02 02:16 | Outpatient (CLI) | payer BC, MEDICAID, SELFPAY | END 2021-12-02 02:17 | disposition home or self-care (01) | LOC: DS 02:16 | PROVIDERS: Visit Provider Dietitian, Registered ==

== ENCOUNTER 2022-02-01 03:52 | Outpatient (CLI) | payer BC, MEDICAID, SELFPAY | END 2022-02-01 03:53 | disposition home or self-care (01) | LOC: LBO 03:52 ==

== ENCOUNTER 2022-04-05 03:18 | Outpatient (CLI) | payer BC, SELFPAY ==
[2022-04-05 17:05] LABS: Calculated LDL 119 mg/dL (<100); Cholesterol 233 mg/dL (<200); HDL Cholesterol 45 mg/dL (40-60); Triglyceride 347 mg/dL (<150)
[2022-04-05 17:42] LABS: TSH (W/Ref FT4) 2.24 uIU/mL (0.36-3.74)
[2022-04-06 19:12] LABS: FSH 7.1 mIU/mL (See Note); Thyroglobulin Antibody <15 U/mL (<=60); Thyroperoxidase Antibody <28 U/mL (<=60)
[2022-04-21 12:50] LABS: Testosterone, Free 2.55 ng/dL (<0.13-1.08); Testosterone, Total 68 ng/dL (8-60)
== END 2022-04-05 03:19 | disposition home or self-care (01) ==
LOC: LBO 03:18
PROVIDERS: Visit Provider Obstetrics & Gynecology
DX: N91.2 Amenorrhea, unspecified (principal); R79.89 Other specified abnormal findings of blood chemistry
CPT/HCPCS: 36415; 80061; 84402; 84403; 86376; 83001; 84443

== ENCOUNTER 2023-05-23 03:09 | Outpatient (CLI) | payer OTHER, SELFPAY ==
[2023-05-23 11:25] LABS: Anion Gap 10.2 mmol/L (3-11); BUN 10 mg/dL (7-18); CO2 25.8 mmol/L (21.0-32.0); CREATININE 0.7 mg/dL (0.55-1.02); Calcium 9.4 mg/dL (8.5-10.1); Calculated LDL 153 mg/dL (<100); Chloride 104 mmol/L (98-107); Cholesterol 258 mg/dL (<200); Estimated GFR 126.11 (mL/min/1.73m2); Glucose 91 mg/dL (74-106); HDL Cholesterol 61 mg/dL (40-60); Potassium 3.7 mmol/L (3.5-5.1); Sodium 140 mmol/L (136-145); Triglyceride 223 mg/dL (<150)
[2023-05-24 10:54] LABS: HIV-1/2 Ag & Ab Screen Negative (Negative)
[2023-05-24 11:09] LABS: Hepatitis C Ab w Rflx HCV PCR Negative (Negative)
== END 2023-05-23 03:10 | disposition home or self-care (01) ==
LOC: LBO 03:09
PROVIDERS: PCP Nurse Practitioner Family; Visit Provider Nurse Practitioner Family
DX: E78.5 Hyperlipidemia, unspecified (principal); Z13.1 Encounter for screening for diabetes mellitus; Z11.4 Encounter for screening for human immunodeficiency virus [HIV]; Z11.59 Encounter for screening for other viral diseases
CPT/HCPCS: 36415; 80048; 80061; 86803; 87389

== ENCOUNTER 2023-11-07 15:13 | Outpatient (REF) | payer OTHER, SELFPAY ==
--- NOTE | 2023-11-07 14:30 | PAPFT_PTH ---
PATIENT: Rachel Gordillo LOC: [facility] U#:[id number] AGE/SX: 23/F ROOM: RE11/07/[address]: Yanet Pruitt NP : 2000 BED: DIS: 11/07/2023 SPEC #: [id number] RECD: 11/07/23 17:30 STATUS: LULU RAMÍREZ #: [id number] SAMI: 11/07/23 14:[address]: Yanet Pruitt NP DEPT: [facility] Cytology RECD BY: Carla Collazo ENTERED: 11/07/23 17:31 SP TYPE: PAPFT OTHR DR: Steff Baltazar, DESTINY Tissues: 1 - CX/ENDOCX FOR PAP SMEARS Procedures: PAP THIN PREP/[facility] Screening Comments: [id number]
== END 2023-11-07 15:14 | disposition home or self-care (01) ==
LOC: LBN 15:13
PROVIDERS: PCP Nurse Practitioner Family; Visit Provider Nurse Practitioner Women's Health
DX: Z01.419 Encounter for gynecological examination (general) (routine) without abnormal findings (principal); E28.2 Polycystic ovarian syndrome; Z12.4 Encounter for screening for malignant neoplasm of cervix
CPT/HCPCS: 88142

== ENCOUNTER 2023-11-09 11:59 | Emergency (ER) | payer OTHER, SELFPAY ==
[2023-11-09 12:03] VITALS: BP 160/78; PULSE 115; RESP 13; TEMP 36.7; O2SAT 100
--- NOTE | 2023-11-09 13:00 | RT.EKG_ITS ---
APPROVED REPORT Exam: Resting ECG Reason for Exam: presyncope Patient Location: E HR:102 bpm ECG Measurements Heart Rate 102 AXIS VT 140 P 26 QRSd 86 QRS 42 QT 327 T -1 QTc 426 Conclusion Sinus tachycardia...rate> 99
[2023-11-09 13:06] LABS: Abs Immature Grans 0.04 10^3/uL (0.0-0.06); Absolute Basophil Count 0.05 10^3/uL (0.0-0.2); Absolute Eosinophil Count 0.25 10^3/uL (0.0-0.7); Absolute Lymphocyte Count 3.74 10^3/uL (1.2-3.4); Absolute Monocyte Count 0.59 10^3/uL (0.1-0.8); Absolute Neutrophil Count 5.37 10^3/uL (1.2-6.7); Basophils % 0.5 %; Eosinophils % 2.5 %; HCT 35.1 % (36.0-46.0); HGB 11.4 g/dL (11.2-15.7); Immature Grans % 0.4 %; Lymphocytes % 37.3 %; MCH 27.4 pg (27.0-33.0); MCHC 32.5 % (32.0-36.0); MCV 84 fL (80-95); MPV 8.7 fL (8.0-11.0); Monocytes % 5.9 %; Neutrophils % 53.4 %; Platelet Count 402 10^3/uL (130-400); RBC 4.16 10^6/uL (3.93-5.22); RDW 13.2 % (11.7-14.6); RDW-SD 40.9 fL; WBC 10.04 10^3/uL (4.4-10.8)
[2023-11-09 13:21] LABS: ALT 26 U/L (14-59); AST 17 U/L (15-37); Albumin 3.4 g/dL (3.4-5.0); Alkaline Phosphatase 105 U/L (46-116); Anion Gap 9.5 mmol/L (3-11); BUN 13 mg/dL (7-18); Bilirubin, Total 0.2 mg/dL (0.2-1.0); CO2 25.5 mmol/L (21.0-32.0); CREATININE 0.8 mg/dL (0.55-1.02); Calcium 8.6 mg/dL (8.5-10.1); Chloride 105 mmol/L (98-107); Estimated GFR 106.77 (mL/min/1.73m2); Glucose 89 mg/dL (74-106); Potassium 3.8 mmol/L (3.5-5.1); Sodium 140 mmol/L (136-145); Total Protein 7.8 g/dL (6.4-8.2)
[2023-11-09 14:05] LABS: D-Dimer 393 ng/mlFEU (<500)
[2023-11-09] MEDS: Lactated Ringers 500 ML 1000 ML IV (14:43)
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
[2023-11-09 15:33] VITALS: BP 129/85; PULSE 96; TEMP 36.2
[2023-11-09 15:39] VITALS: BP 129/85; PULSE 96; TEMP 36.2
[2023-11-09] MEDS: Acetaminophen 325 MG TAB (15:39)
== END 2023-11-09 16:12 | disposition home or self-care (01) ==
PROVIDERS: Emergency Provider Student in an Organized Health Care Education/Training Program; PCP Nurse Practitioner Family
DX: N92.0 Excessive and frequent menstruation with regular cycle (principal); R00.0 Tachycardia, unspecified; R55 Syncope and collapse; E28.2 Polycystic ovarian syndrome; E78.5 Hyperlipidemia, unspecified
CPT/HCPCS: 80053; 86850; 86900; 86901; 93005; 96361; 99285; 85025; 85379; 93010; 99284

== ENCOUNTER 2024-05-28 07:24 | Day surgery (SDC) | payer OTHER, SELFPAY ==
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
[2024-05-28] VITALS (12 sets, daily range): BP systolic 117–142; BP diastolic 64–84; PULSE 65–86; RESP 16–28; TEMP 36.2–36.6; O2SAT 94–100; BMI 42.0
[2024-05-28] MEDS: Normal Saline Flush 10 ML SYR IVP (08:43)
--- NOTE | 2024-05-28 10:40 | FALL_PTH ---
PATIENT: Rachel Gordillo LOC: [facility] U#:[id number] AGE/SX: 23/F ROOM: RE05/28/[address]: Danae Elaine MD : 2000 BED: DIS: 05/28/2024 SPEC #: [id number] RECD: 05/28/24 13:15 STATUS: LULU RE #: [id number] SAMI: 05/28/24 10:[address]: Danae Elaine DEPT: Surgical Specimen RECD BY: Carla Collazo ENTERED: 05/28/24 13:16 SP TYPE: Fall OTHR DR: Steff Baltazar APRN Tissues: 1 - FALLOPIAN TUBE (STERILIZATION) 2 - FALLOPIAN TUBE (STERILIZATION) Procedures: GROSS AND MICRO LEVEL 2 Comments: [id number]
[2024-05-28] MEDS: Bupivacaine 0.25% Pres-Free 30 ML VIAL (10:49)
--- NOTE | 2024-05-28 11:26 | ROE_ITS ---
Operative Note Operative Note PRE-OP DIAGNOSIS: desires permanent sterilization POST-OP DIAGNOSIS: same PROCEDURE: Laparoscopic bilateral salpingectomy SURGEON: Danae Elaine ASSISTING SURGEON: Delaney Lala Refer to Anesthesia Record ESTIMATED BLOOD LOSS: 5 PATHOLOGY: other (b/l tubes) COMPLICATIONS: None Patient was transported to: PACU Patient's condition: stable Indications: Pt is a 23yo who has had a persistent desire for permanent sterilization. She declined other forms of long acting reversible contraception. Findings: Normal appearing uterus, ovaries and tubes. Procedure Description: After informed consent was signed the patient was taken to the operating room and given general anesthesia.? SCDs were placed on her legs.? She was prepped and draped in the dorsal lithotomy position in the [facility].? Her bladder was drained of urine via a straight catheter. A speculum was placed into the vagina to expose the cervix and a hulka manipulator was placed into the cervix. The speculum was removed. Gloves were changed and attention was turned to the abdomen. The infraumbilical fold was grasped and injected with 0.25% marcaine with epinephrine. A 10mm incision was made in the infraumbilical fold with the scalpel. A hemostat was used to bluntly dissect the subcuticular layers. The fascia was grasped with zulema clamps and incised. The incision was extended with blunt pressure and sharp dissection to about 7mm until a finger could be put through to palpate entrace to the abdominal cavity. The visiport was used to enter the abdomen under direct visualization. Once entrance to the abdominal cavity was confirmed the CO2 was turned on and the abdomen was insufflated. Two lateral 5mm ports were then placed under direct visualization. The left tube was identified and followed to the fimbriated end. The tube was grasped and elevated and the mesosalpinx was clamped, cauterized and cut with the ligasure device. The was continued along the length of the tube. The proximal end of the tube was then transected with the ligasure. Good hemostasis was noted. The right tube was then identified and followed to the fimbriated end. The tube was grasped and elevated and the mesosalpinx was clamped, cauterized and cut with the ligasure device. The was continued along the length of the tube. The proximal end of the tube was then transected with the ligasure. Good hemostasis was noted on both sides. The tubes were removed individually through the ports and noted to be intact. The ports were removed. The gas was released from the abdomen. The fascia of the umbilical incision was identified and closed with a [id number] suture of 0 vicryl. The skin incisions were then closed with 4-0 vicryl. Mastisol and steristrips were placed. The manipulator was removed. The patient was placed back into the supine position.? She was moved to the stretcher and taken to the recovery room in stable condition. Date of Procedure: 05/28/24
--- NOTE | 2024-05-28 11:41 | W.ANESPOSTOP ---
Postoperative Evaluation Date, Time and Location Date Performed: 05/28/24 Time Performed: 11:41 Patient Location: Day Surgery Unit Vital Signs Most Recent Imported Vital Signs: Most Recent Vital Signs Temp Pulse Resp BP Pulse Ox 36.4 C L 66 17 133/81 97 05/28/24 11:35 05/28/24 11:31 05/28/24 11:31 05/28/24 11:31 05/28/24 11:31 Pain Score Most Recent Pain Score: Most Recent Pain Score Pain Level 6 05/28/24 11:35 Assessment Mental Status: Awake (Alert & Oriented to Patient Baseline) Airway and Respiratory Function: Patent airway with normal (patient baseline) respiratory exam Cardiovascular Function: Hemodynamically Stable Hydration Status: Adequately Hydrated Nausea & Vomiting: No Nausea or Vomiting Pain: Pain is tolerable per patient Peripheral Nerve Block: Patient did not receive a nerve block
--- NOTE | 2024-05-28 11:43 | W.PM.DSUDISC ---
Date of service: 05/28/24 Time of Service: 11:44 Discharge Plan Disposition Patient Disposition: Home Condition: Stable Discharge Details Attending Provider: Danae Elaine Primary Care Provider: Steff Baltazar Home Meds and New Rx's Prescriptions: No Action cholecalciferol (vitamin D3) 25 mcg (1,000 unit) capsule 1,000 unit PO DAILY multivitamin Tablet 1 tab PO DAILY Discharge Instructions Activity:: no lifting >20lbs until visit Remove Dressings/Wound Care:: Do Not Remove Shower/Bathe:: 24 hours Diet:: As Tolerated Discharge Orders Discharge Orders: Discharge Order (Routine); Ordered 05/28/24 Ordered By: Danae Elaine
== END 2024-05-28 13:20 | disposition home or self-care (01) ==
PROVIDERS: PCP Nurse Practitioner Family; Visit Provider Obstetrics & Gynecology
PROC: (CPT 58661; principal; 2024-05-28 09:15)
DX: Z30.2 Encounter for sterilization (principal); F41.8 Other specified anxiety disorders; E66.9 Obesity, unspecified; M54.50 Low back pain, unspecified; E78.5 Hyperlipidemia, unspecified; K58.9 Irritable bowel syndrome, unspecified; N83.8 Other noninflammatory disorders of ovary, fallopian tube and broad ligament
CPT/HCPCS: 58661; 81025; 88302; J0131; J0665; J1100; J1805; J1885; J2003; J2405; J2704; J3475

== ENCOUNTER 2024-08-14 13:11 | Emergency (ER) | payer OTHER, SELFPAY ==
[2024-08-14 13:13] VITALS: BP 146/91; PULSE 96; RESP 20; TEMP 36.9; O2SAT 99
--- NOTE | 2024-08-14 13:15 | RT.EKG_ITS ---
APPROVED REPORT Exam: Resting ECG Reason for Exam: syncope Patient Location: E HR:97 bpm ECG Measurements Heart Rate 97 AXIS ID 122 P 13 QRSd 91 QRS 52 QT 329 T -1 QTc 418 Conclusion Sinus rhythm...normal P axis, V-rate 60- 99
[2024-08-14] MEDS: Ondansetron O.D.T. 4 MG TABEF PO (13:36)
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
[2024-08-14 14:11] LABS: Abs Immature Grans 0.04 10^3/uL (0.0-0.06); Absolute Basophil Count 0.04 10^3/uL (0.0-0.2); Absolute Eosinophil Count 0.12 10^3/uL (0.0-0.7); Absolute Lymphocyte Count 2.22 10^3/uL (1.2-3.4); Absolute Monocyte Count 0.69 10^3/uL (0.1-0.8); Absolute Neutrophil Count 7.04 10^3/uL (1.2-6.7); Basophils % 0.4 %; Eosinophils % 1.2 %; HGB 10.4 g/dL (11.2-15.7); Immature Grans % 0.4 %; Lymphocytes % 21.9 %; MCH 25.5 pg (27.0-33.0); MCHC 31.5 % (32.0-36.0); MCV 81 fL (80-95); MPV 8.6 fL (8.0-11.0); Monocytes % 6.8 %; Neutrophils % 69.3 %; Platelet Count 379 10^3/uL (130-400); RBC 4.08 10^6/uL (3.93-5.22); RDW 14.4 % (11.7-14.6); RDW-SD 42.2 fL; WBC 10.15 10^3/uL (4.4-10.8)
[2024-08-14 14:24] LABS: ALT 26 U/L (14-59); AST 15 U/L (15-37); Albumin 3.5 g/dL (3.4-5.0); Alkaline Phosphatase 88 U/L (46-116); Anion Gap 10.9 mmol/L (3-11); BUN 12 mg/dL (7-18); Bilirubin, Total 0.16 mg/dL (0.2-1.0); CO2 26.1 mmol/L (21.0-32.0); CREATININE 0.7 mg/dL (0.55-1.02); Calcium 9.2 mg/dL (8.5-10.1); Chloride 104 mmol/L (98-107); Estimated GFR 125.33 (mL/min/1.73m2); Glucose 86 mg/dL (74-106); Magnesium 1.7 mg/dL (1.8-2.4); Potassium 3.6 mmol/L (3.5-5.1); Sodium 141 mmol/L (136-145); Total Protein 7.9 g/dL (6.4-8.2)
[2024-08-14 14:37] LABS: HCG Qual (Serum) Negative
[2024-08-14 14:40] VITALS: PULSE 97; O2SAT 98
[2024-08-14 14:55] VITALS: PULSE 95; RESP 16; TEMP 37.7; O2SAT 98
[2024-08-14] MEDS: Ondansetron O.D.T. 4 MG TABEF, 3 TABS/BTL PO (15:00)
== END 2024-08-14 15:06 | disposition home or self-care (01) ==
PROVIDERS: Emergency Provider Emergency Medicine; PCP Nurse Practitioner Family
DX: R55 Syncope and collapse (principal); R11.2 Nausea with vomiting, unspecified; N92.0 Excessive and frequent menstruation with regular cycle; E78.5 Hyperlipidemia, unspecified
CPT/HCPCS: 36415; 80053; 82962; 93005; 99284; 83735; 84703; 85025; 93010; 99283

== ENCOUNTER 2024-09-02 02:42 | Outpatient (CLI) | payer OTHER, SELFPAY ==
[2024-09-02 08:34] LABS: TSH (W/Ref FT4) 1.75 uIU/mL (0.36-3.74)
== END 2024-09-02 02:43 | disposition home or self-care (01) ==
PROVIDERS: PCP Nurse Practitioner Family; Visit Provider Obstetrics & Gynecology
DX: N92.0 Excessive and frequent menstruation with regular cycle (principal); N94.6 Dysmenorrhea, unspecified
CPT/HCPCS: 36415; 84443

== ENCOUNTER 2024-10-14 14:27 | Observation (INO) | payer OTHER, SELFPAY ==
[2024-10-14] VITALS (62 sets, daily range): BP systolic 103–177; BP diastolic 55–106; PULSE 60–118; RESP 13–31; O2SAT 97–100
--- NOTE | 2024-10-14 14:30 | RT.EKG_ITS ---
APPROVED REPORT Exam: Resting ECG Reason for Exam: syncope Patient Location: E HR:89 bpm ECG Measurements Heart Rate 89 AXIS IN 142 P 55 QRSd 91 QRS 57 QT 340 T 54 QTc 414 Conclusion Sinus rhythm...normal P axis, V-rate 60- 99 No Occlusion NC
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
--- NOTE | 2024-10-14 14:41 | DI.RAD_ITS ---
Exam(s) XR CHEST 1V IN DI DEPT EXAM: XR CHEST 1V IN DI DEPT CLINICAL HISTORY: Chest pain TECHNIQUE: 2D digital imaging was performed of the chest. One image was obtained. An AP view was ob tained. COMPARISON: No exams were available for comparison FINDINGS: MEDIASTINUM: Normal. HEART: Normal. PULMONARY VASCULATURE: Normal. LUNGS: Clear. PLEURAL SPACE: No pleural effusion or pneumothorax. BONE:Within normal limits for the patient's age. OTHER FINDINGS:Normal. IMPRESSION: No acute pulmonary findings. DATA REPOSITORY: RADIATION DOSE DELIVERED:
--- NOTE | 2024-10-14 15:15 | DI.US_ITS ---
Exam(s) US PELVIS TRANSVAGINAL EXAM: US PELVIS TRANSVAGINAL CLINICAL HISTORY: IUD removal. TECHNIQUE: Transabdominal and transvaginal pelvic ultrasound was performed using standard protocol. COMPARISON: US US PELVIS from 08/27/2024 US POCUS EXAM from 10/14/2024 FINDINGS: UTERUS: Position: Anteverted. Size: 7.1 long by 3.3 AP by 4.7 transverse cm Endometrium: 0.4 cm. Normal for patient's menstrual status. There is a trace amount of fluid in the c ervical canal. Myometrium: Unremarkable. Cervix: Unremarkable. OVARIES: Right: 2.8 x 1.9 x 2.0 cm Cyst or mass: No suspicious cystic or solid masses. Left: 2.3 x 1.5 x 2.5 cm Cyst or mass: No suspicious cystic or solid masses. DOPPLER: Color: There is blood flow seen in the right ovary. The left ovary was difficult to visualize. CUL-DE-SAC: Free fluid: None. Other: None. IMPRESSION: 1. Normal-appearing uterus with endometrial stripe within normal limits. 2. Limited visualization of the ovaries, but no gross abnormality is identified. DATA REPOSITORY:
[2024-10-14 15:18] LABS: Abs Immature Grans 0.04 10^3/uL (0.0-0.06); Absolute Basophil Count 0.07 10^3/uL (0.0-0.2); Absolute Eosinophil Count 0.13 10^3/uL (0.0-0.7); Absolute Lymphocyte Count 2.95 10^3/uL (1.2-3.4); Absolute Monocyte Count 0.42 10^3/uL (0.1-0.8); Absolute Neutrophil Count 5.65 10^3/uL (1.2-6.7); Basophils % 0.8 %; Eosinophils % 1.4 %; HGB 11.3 g/dL (11.2-15.7); Immature Grans % 0.4 %; Lymphocytes % 31.9 %; MCH 25.3 pg (27.0-33.0); MCHC 31.4 % (32.0-36.0); MCV 81 fL (80-95); MPV 8.9 fL (8.0-11.0); Monocytes % 4.5 %; Platelet Count 418 10^3/uL (130-400); RBC 4.47 10^6/uL (3.93-5.22); RDW 14.5 % (11.7-14.6); RDW-SD 42.5 fL; WBC 9.26 10^3/uL (4.4-10.8)
[2024-10-14 15:32] LABS: INR 1.1 (0.9-1.1); Prothrombin Time 10.7 sec (9.1-11.1)
[2024-10-14] MEDS: Ketorolac 30 MG/ML VIAL IVP (15:34)
[2024-10-14] MEDS: Normal Saline 500 ML IV (15:34)
[2024-10-14 15:43] LABS: HCG Qual (Serum) Negative
[2024-10-14 15:45] LABS: ALT 21 U/L (14-59); AST 13 U/L (15-37); Albumin 3.9 g/dL (3.4-5.0); Alkaline Phosphatase 80 U/L (46-116); Anion Gap 12.5 mmol/L (3-11); BUN 12 mg/dL (7-18); Bilirubin, Total 0.3 mg/dL (0.2-1.0); CO2 25.5 mmol/L (21.0-32.0); CREATININE 0.8 mg/dL (0.55-1.02); Calcium 9.7 mg/dL (8.5-10.1); Chloride 102 mmol/L (98-107); Estimated GFR 106.11 (mL/min/1.73m2); Glucose 78 mg/dL (74-106); Lipase 30 U/L (<78); Magnesium 1.9 mg/dL (1.8-2.4); Potassium 3.5 mmol/L (3.5-5.1); Sodium 140 mmol/L (136-145); Total Protein 8.7 g/dL (6.4-8.2); Troponin I 22 ng/L (<or=51)
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
--- NOTE | 2024-10-14 17:32 | NUR.NOTE ---
Called [facility] and spoke with Lizzette Costa @ 1729 Called [facility] and asked for Images to be Pushed to [facility] @ 1732 Cart placed in the room by Luci @ 1738
[2024-10-14 17:34] LABS: BE (Venous) -1 mmol/L (-2-3); HCO3 (Venous) 23 mmol/L (23-28); O2 Sat (Venous) 88 %; TCO2 (Venous) 22 mmol/L (24-29); pCO2 (Venous) 36 mmHg (41-51); pH (Venous) 7.43 (7.31-7.41); pO2 (Venous) 53 mmHg
[2024-10-14 18:00] LABS: Troponin I 18 ng/L (<or=51)
--- NOTE | 2024-10-14 18:04 | ED.PROG_ITS ---
Date of service: 10/14/24 Time of Service: 18:04 Medical Decision Making Patient's head CT negative, she has had several episodes where she gets pelvic cramping and she stopped responding and right flicker but then immediately comes to and has no postictal period and has a sinus rhythm on the monitor throughout these. Unclear if this is psychogenic in nature, less concern for seizures. Hospitalist and CASING FINISHER AND STUFFER evaluated, initially CASING FINISHER AND STUFFER was going to vomit but then teleneurology recommended obtaining MRI and EEG, and after this information hospitalist decided to admit with CASING FINISHER AND STUFFER consult. Quality:SDPA Health Related Social Needs: No Data to Display Discharge Plan Discharge Details Chief Complaint: Dizzy/Sync Clinical Impression: Syncope Primary Care Provider: Steff Baltazar ED Provider: Patrice Pruitt Home Meds and New Rx's Prescriptions: No Action multivitamin Tablet 1 tab PO DAILY norethindrone acetate 5 mg tablet 5 mg PO BID Qty: 60 2RF ondansetron 4 mg tablet,disintegrating 4 mg PO Q8H PRN (Reason: nausea and vomiting) Qty: 30 0RF
[2024-10-14 18:27] LABS: Bilirubin Negative (Negative); Blood Trace-lysed (Negative); Clarity Clear (Clear); Glucose Negative (Negative); Ketones Negative (Negative); Leukocyte Esterase Negative (Negative); Nitrite Negative (Negative); Specific Gravity 1.025 (1.005-1.025); Urobilinogen 0.2 mg/dL (Up to 0.2)
[2024-10-14 18:44] LABS: Bacteria Few HPF (Negative); C & S Indicated? No; Casts Negative LPF (Negative); Crystals Negative HPF (Negative); Epithelial Cells Negative HPF (Negative); Mucus Trace (Negative); Other Cells Negative (Negative); RBC 0-2 HPF (0-2); WBC Negative HPF (0-5)
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
[2024-10-14 19:58] LABS: Troponin I 19 ng/L (<or=51)
[2024-10-14] MEDS: levETIRAcetam 1,000 MG in Normal Saline 100 ML 400 MG IVPB (20:39)
[2024-10-14] MEDS: metroNIDAZOLE 500 MG TAB PO (21:26)
[2024-10-14] MEDS: cefTRIAXone 1 GM/50 ML BAG IV (23:21)
[2024-10-14] MEDS: Doxycycline Hyclate 100 MG CAP PO (23:21)
[2024-10-14] MEDS: Ibuprofen 600 MG TAB PO (23:21)
[2024-10-14] MEDS: Normal Saline Flush 10 ML SYR IVP (23:21)
[2024-10-14] MEDS: Lactated Ringers 500 ML IV (23:55)
--- NOTE | 2024-10-15 | DI.CT_ITS ---
Exam(s) CT RENAL COLIC WO EXAM: CT RENAL COLIC WO CLINICAL HISTORY: Abdominal pain / flank pain. TECHNIQUE: Imaging Protocol: Axial computed tomography images with coronal and sagittal reformatted images were created and reviewed. COMPARISON: CT CT ABDOMEN PELVIS W from 10/25/2021 FINDINGS: ABDOMEN: Lung Bases: Normal where visualized. Liver: Normal density. No measurable mass. Gallbladder and biliary tract: No radiodense calculus or biliary ductal dilation. Pancreas: Normal density, no abnormal calcifications or inflammatory process. Spleen: Normal. Kidneys: Normal size, contour and axis.No radiodense stones or obstructive uropathy. No masses seen. Adrenal glands: No mass is seen. Lymph nodes: Within normal limits. Abdominal Aorta: Abdominal portion non-dilated. PELVIS: Bladder:Symmetric distention, no gross wall thickening. Bowel: No obstruction or bowel wall thickening. There is no evidence of appendicitis. Peritoneal cavity: No ascites, collection or mesenteric inflammatory response. No free air. Reproductive organs: Unremarkable as visualized. Bones: Within normal limits. There is some sclerosis at the sacroiliac joints bilaterally. No erosio ns or ankylosis is seen. Soft Tissues: Within normal limits. IMPRESSION: 1. No evidence of obstructive uropathy. 2. No evidence of appendicitis. No cholelithiasis. 3. No acute abdominal or pelvic process. RADIATION DOSE DELIVERED: 636.91mGy.cm Total DLP DATA REPOSITORY: All CT scans at this facility are submitted to the National Radiology Data Registry (NRDR) Dose Index Registry (DIR) with the [employer] (ACR). RADIATION OPTIMIZATION: All CT scans at this facility use at least one of these dose optimization te chniques: automated exposure control; mA and/or kV adjustment per patient size (includes targeted exa ms where dose is matched to clinical indication); or iterative reconstruction.
[2024-10-15] MEDS: Ondansetron 4 MG/2 ML VIAL IVP ×2 (00:41→06:35)
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
[2024-10-15 02:47] VITALS: BP 99/49; PULSE 55; RESP 20; TEMP 36.2; O2SAT 99
[2024-10-15 06:27] VITALS: BP 134/87; O2SAT 100
[2024-10-15] MEDS: Ketorolac 15 MG/ML VIAL IVP ×2 (06:42→16:29)
[2024-10-15 07:29] LABS: Abs Immature Grans 0.02 10^3/uL (0.0-0.06); Absolute Basophil Count 0.06 10^3/uL (0.0-0.2); Absolute Eosinophil Count 0.22 10^3/uL (0.0-0.7); Absolute Monocyte Count 0.62 10^3/uL (0.1-0.8); Absolute Neutrophil Count 4.96 10^3/uL (1.2-6.7); Basophils % 0.7 %; Eosinophils % 2.5 %; HCT 31.2 % (36.0-46.0); HGB 9.8 g/dL (11.2-15.7); Immature Grans % 0.2 %; MCH 25.3 pg (27.0-33.0); MCHC 31.4 % (32.0-36.0); MCV 81 fL (80-95); MPV 9.3 fL (8.0-11.0); Monocytes % 7.1 %; Neutrophils % 56.5 %; Platelet Count 371 10^3/uL (130-400); RBC 3.87 10^6/uL (3.93-5.22); RDW 14.5 % (11.7-14.6); RDW-SD 42.7 fL; WBC 8.78 10^3/uL (4.4-10.8)
[2024-10-15 07:30] VITALS: BP 121/76; PULSE 70; RESP 18; TEMP 36.8; O2SAT 97
[2024-10-15 07:58] LABS: Anion Gap 10.3 mmol/L (3-11); BUN 10 mg/dL (7-18); CO2 24.7 mmol/L (21.0-32.0); CREATININE 0.7 mg/dL (0.55-1.02); Chloride 105 mmol/L (98-107); Estimated GFR 124.55 (mL/min/1.73m2); Glucose 79 mg/dL (74-106); Magnesium 1.9 mg/dL (1.8-2.4); Potassium 3.8 mmol/L (3.5-5.1); Sodium 140 mmol/L (136-145); TSH (W/Ref FT4) 2.41 uIU/mL (0.36-3.74)
--- NOTE | 2024-10-15 08:00 | DI.MRI_ITS ---
Exam(s) MR BRAIN WO EXAM: MR BRAIN WO CLINICAL HISTORY: Seizure TECHNIQUE: Multiplanar multisequence MRI of the brain was performed. COMPARISON: CT CT HEAD WO from 10/14/2024 FINDINGS: VENTRICLES AND EXTRA AXIAL SPACES: Normal in size and morphology for the patient's age. MIDLINE SHIFT: None. CEREBRAL PARENCHYMA: No focus of restricted diffusion to suggest acute infarct. No space-occupying le jhon identified. The temporal lobes appear symmetric and within normal limits. HEMORRHAGE: None. BRAINSTEM/CEREBELLUM: Normal. CALVARIUM: Normal. VISUALIZED PARANASAL SINUSES/MASTOIDS:There is some fluid seen in the left mastoid air cells. The re maining visualized paranasal sinuses are clear. [place]: Normal flow void. PITUITARY GLAND: Unremarkable. OTHER FINDINGS: None. IMPRESSION: Unremarkable MRI of the brain. DATA REPOSITORY:
[2024-10-15] MEDS: Multivitamin TAB 1 TAB PO (08:24)
[2024-10-15] MEDS: metroNIDAZOLE 500 MG TAB PO ×2 (08:24→20:30)
[2024-10-15] MEDS: Norethindrone 5 MG TAB PO ×2 (08:24→20:30)
[2024-10-15] MEDS: Ibuprofen 600 MG TAB PO (08:25)
[2024-10-15] MEDS: Normal Saline Flush 10 ML SYR IVP ×2 (08:25→20:31)
[2024-10-15] MEDS: levETIRAcetam Oral Solution 100 MG/ML 500 MG PO ×2 (08:27→20:32)
[2024-10-15] MEDS: MORPHine 2 MG/ML SYR IV ×2 (08:59→16:30)
[2024-10-15] MEDS: LORazepam 2 MG/ML VIAL 1 MG IVP (09:37)
[2024-10-15] MEDS: HYDROmorphone 2 MG/ML SYR 0.5 MG IVP (09:37)
[2024-10-15 10:37] VITALS: BP 108/64; PULSE 68; RESP 18; TEMP 36.5; O2SAT 96
--- NOTE | 2024-10-15 10:42 | PHACLINREV_ITS ---
Pharmacy Admission Review Admission Clinical Review Admission Pharmacy Review: Abnormal uterine bleeding (Acute) Atypical syncope (Acute) Pelvic pain (Acute) No Known Allergies Allergy (Verified 10/14/24 14:34) Resuscitation Status Full Code Height 5 ft 2 in Weight 97.522 kg Pharmacy Admission Review Renal Dosing Renal Dosing: BUN 10 mg/dL (7-18) 10/15/24 06:10 Creatinine 0.7 mg/dL (0.55-1.02) 10/15/24 06:10 Medications needing adjustments: Reviewed (CrCl 136.29 mL/min) List of meds needing interventions: Current medications are okay Anticoagulation Anticoagulation: Hgb 9.8 g/dL (11.2-15.7) L 10/15/24 06:10 Hct 31.2 % (36.0-46.0) L 10/15/24 06:10 Plt Count 371 10^3/uL (130-400) 10/15/24 06:10 INR 1.1 (0.9-1.1) 10/14/24 15:00 Creatinine 0.7 mg/dL (0.55-1.02) 10/15/24 06:10 DVT Prophylaxis: Reviewed (SCDs, Hgb decreased from 11.3) Opiate Usage Evaluate Pain Scale/Pains Meds: Reviewed (morphine 2mg IV q2h PRN - 2mg/24hrs, a lso received 0.5mg of IV hydromorphone this morning - per provider patient is a lot of pain and trying to get it under control) Scheduled Bowel Reg ordered if on Opiates?: No (PRN Miralax) Relevant Labs Relevant Labs: Sodium 140 mmol/L (136-145) 10/15/24 06:10 Potassium 3.8 mmol/L (3.5-5.1) 10/15/24 06:10 Chloride 105 mmol/L (98-107) 10/15/24 06:10 Magnesium 1.9 mg/dL (1.8-2.4) 10/15/24 06:10 Electrolytes, C-Reactive P, ESR: Reviewed Cardiac Review Cardiac Review: Troponin I 19 ng/L (<or=51) 10/14/24 19:34 BP, HR, EF%: Reviewed (HR and BP WNL) QTc Review QTc: Reviewed (414 from 10/14/24) IV to PO Switch IV Medications: Reviewed (ceftriaxone, ketorolac, lorazepam, morphine and ondansetron) Home Meds Home Med List reviewed: Reviewed Current Meds Current Medication Order Review: Intervened Comments: discontinued duplicate ondansetron order Pharmacy Antibiotic Review Relevant Labs: WBC 8.78 10^3/uL (4.4-10.8) 10/15/24 06:10 Temperature 36.5 C Temperature 36.8 C Temperature 36.2 C Pharmacy Antibiotic Activity: Reviewed, no change Comments: Patient is on ceftriaxone and PO metronidazole, day 1. Had IUD removed yesterday due to severe pelvic pain and there is potential for kidney stone per provider. Overall unsure what is causing patient so much pain. Catheter tip culture pending.
--- NOTE | 2024-10-15 10:51 | PGE_ITS ---
Date of Service Date of service: 10/15/24 Time of Service: 10:51 Assessment and Plan Assessment and plan (1) Abnormal uterine bleeding: Status: Acute (2) Dysmenorrhea: Status: Chronic (3) Pelvic pain: Status: Acute Assessment and plan: Pain medications adjusted this morning; provided with morphine 2mg IV q2 hrs prn. Toradol increased to 30 mg and scheduled for q6. Depo-Provera for menstrual suppression also ordered. Discussed imaging for possible bladder vs urethral stone as well as urine straining. (4) Atypical syncope: Status: Acute Subjective Subjective Interval history since last seen: Patient found very uncomfortable in bed, this morning. Her pain had increased, again, this morning despite 15 of Toradol and 600 mg of Motrin. She vomitted, as well, this morning, but this was reportedly due to the pain. Her vaginal bleeding has been scant. She describes a desire to push something out while grabbing her lower abdomen. Exam Const General: other (Uncomfortable and pre-syncopal and syncopal episodes this AM with pain) Resp Other: Non-labored GI Other: Soft, non-distended; no evidence of lesions or skin changes Extrem Other: No swelling Psych Other: Appropriate Objective Last Vital Signs Temp 97.7 F 10/15/24 10:37 Pulse 68 10/15/24 10:37 Resp 18 10/15/24 10:37 BP 108/64 10/15/24 10:37 Pulse Ox 96 10/15/24 10:37 Laboratory Results - last 24 hr 10/14/24 10/14/24 10/14/24 15:00 17:30 18:21 WBC 9.26 RBC 4.47 Hgb 11.3 Hct 36.0 MCV 81 MCH 25.3 L MCHC 31.4 L RDW 14.5 Plt Count 418 H MPV 8.9 Immature Gran % 0.4 Neutrophils % 61.0 Lymphocytes % 31.9 Monocytes % 4.5 Eosinophils % 1.4 Basophils % 0.8 Nucleated RBC % 0.0 Absolute Neutrophils 5.65 Absolute Lymphocytes 2.95 Absolute Monocytes 0.42 Absolute Eosinophils 0.13 Absolute Basophils 0.07 PT 10.7 INR 1.1 VBG pH 7.43 H VBG pCO2 36 L VBG pO2 53 VBG HCO3 23 VBG Total CO2 22 L VBG O2 Saturation 88 VBG Base Excess -1 Sodium 140 Potassium 3.5 Chloride 102 Carbon Dioxide 25.5 Anion Gap 12.5 H BUN 12 Creatinine 0.8 Est GFR (CKD-EPI 2020) 106.11 Glucose 78 Calcium 9.7 Magnesium 1.9 Total Bilirubin 0.3 AST 13 L ALT 21 Alkaline Phosphatase 80 Troponin I 22 18 Total Protein 8.7 H Albumin 3.9 Lipase 30 TSH Serum HCG, Qual Negative Urine Color Yellow Urine Clarity Clear Urine pH 7.0 Ur Specific [place] 1.025 Urine Protein Negative Urine Ketones Negative Urine Blood Trace-lysed H Urine Nitrite Negative Urine Bilirubin Negative Urine Urobilinogen 0.2 Ur Leukocyte Esterase Negative Urine RBC 0-2 Urine WBC Negative Ur Epithelial Cells Negative Urine Crystals Negative Urine Bacteria Few Urine Casts Negative Urine Mucus Trace Urine Other Negative Ur Culture Indicated? No Urine Glucose Negative C. glabrata (PCR) Shanelle species DNA Chlamydia DNA Probe N.gonorrhoeae DNA Probe T. vaginalis (PCR) Bact vaginosis (PCR) 10/14/24 10/14/24 10/15/24 18:43 19:34 06:10 WBC 8.78 RBC 3.87 L Hgb 9.8 L Hct 31.2 L MCV 81 MCH 25.3 L MCHC 31.4 L RDW 14.5 Plt Count 371 MPV 9.3 Immature Gran % 0.2 Neutrophils % 56.5 Lymphocytes % 33.0 Monocytes % 7.1 Eosinophils % 2.5 Basophils % 0.7 Nucleated RBC % 0.0 Absolute Neutrophils 4.96 Absolute Lymphocytes 2.90 Absolute Monocytes 0.62 Absolute Eosinophils 0.22 Absolute Basophils 0.06 PT INR VBG pH VBG pCO2 VBG pO2 VBG HCO3 VBG Total CO2 VBG O2 Saturation VBG Base Excess Sodium 140 Potassium 3.8 Chloride 105 Carbon Dioxide 24.7 Anion Gap 10.3 BUN 10 Creatinine 0.7 Est GFR (CKD-EPI 2020) 124.55 Glucose 79 Calcium 9.0 Magnesium 1.9 Total Bilirubin AST ALT Alkaline Phosphatase Troponin I 19 Total Protein Albumin Lipase TSH 2.41 Serum HCG, Qual Urine Color Urine Clarity Urine pH Ur Specific [place] Urine Protein Urine Ketones Urine Blood Urine Nitrite Urine Bilirubin Urine Urobilinogen Ur Leukocyte Esterase Urine RBC Urine WBC Ur Epithelial Cells Urine Crystals Urine Bacteria Urine Casts Urine Mucus Urine Other Ur Culture Indicated? Urine Glucose C. glabrata (PCR) Cancelled Shanelle species DNA Cancelled Chlamydia DNA Probe Cancelled N.gonorrhoeae DNA Probe Cancelled T. vaginalis (PCR) Cancelled Bact vaginosis (PCR) Cancelled PAWSS Have you Been Recently Intoxicated or Drunk Within the Last 30 days?: No Have you Ever Experienced Previous Episodes of Alcohol Withdrawal?: No Have you ever Experienced Withdrawal Seizures?: No Have you ever Experienced Delirium Tremens(DT)s?: No Have you ever undergone Alcohol Rehabilitation Treatment (i.e, inpt ot outpatient treatment programs)?: No Have you ever Experienced Blackouts?: No Have you ever Combined Alcohol with other Downers within the last 90 days?: No Have you ever Combined Alcohol with any other Substance of Abuse during the last 90 days?: No Positive Blood Alcohol level on Presentation? [PCS.BAL]: No Evidence of Increased Autonomic Activity (i.e. HR>120, tremor, sweating, a gitation, nausea)?: No Result: 0 Time Spent with Patient Time Spent with Patient: 35-49 minutes Time was spent: preparing to see the patient(eg.review tests), obtaining and/or reviewing separately otained hiistory, ordering medications,tests, procedures, referring, communicating with other health senior caregiver, indepentently interpreting results, counseling the patient and care coordination
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
--- NOTE | 2024-10-15 11:29 | W.NUTRFU ---
Date of service: 10/15/24 Time of Service: 11:00 Nutrition Note NOTE: Visited with Rachel and her mother briefly. Rachel states no food allergies or any special dietary needs from kitchen. After screening chart and visit to room to get nutrition-related history, pt initially screened as lower nutrition risk. Let her know of outpatient nutrition services should she have any related concerns she wants to address. No current nutrition concerns or questions related by patient. Will continue to monitor labs, po intake for any changes Time Spent in Nutritional Counseling and Treatment: 5 minutes
--- NOTE | 2024-10-15 11:30 | PGE_ITS ---
Date of Service Date of service: 10/15/24 Time of Service: 11:30 Assessment and Plan Assessment and plan (1) Syncope: Status: Chronic Assessment and plan: Patient has periods of unresponsiveness last seconds, remains hemodynamically stable, no postictal period, no diaphoresis, no nausea, no headache Patient's head goes to the side and she has rapid eye movement. Tele neuro recommends MRI and EEG, with Keppra MRI no acute findings EEG can be done out patient - doubt seizures Telemetry dc'd Continue 500 mg oral BID ? [place] [facility] [place] recommendations on discharge MRI EEG ordered and pending Lorazepam PRN anxiety Signed off to OB provider; medicine will continue to be available for consult. (2) Dysmenorrhea: Status: Chronic Assessment and plan: Hand off to OB provider not currently bleeding Did have IUD removed today by VISUAL MERCHANDISING MANAGER (3) Anxiety and depression: Status: Chronic Assessment and plan: Continue home meds Subjective Subjective Patient reports: still having pain, tolerating liquids well, voiding w/o difficulty, bowel movement, vomiting and afebrile; denies flatus, diarrhea, nausea or shortness of breath Interval history since last seen: Patient states she is having pain in her pelvis like labor pain. She is writhing in pain. Mother at bedside. Exam Narrative Exam Narrative: Nurses notes and vital signs reviewed. Constitutional: Alert and oriented x3. Appears stated age. Obese. Writhing in pain, states it feels like labor; low pelvis Head: Normocephalic, no trauma. Eyes: Pupils PERRL, EOM's intact. Eyelids symmetrical without lesions, discharge, or swelling. Chest: RRR, Normal S1, S2, distal pulses intact. Resp: Lungs clear to auscultation bilaterally, no wheezes, rales, or rhonchi. Abdomen: Soft, non-distended, bowel sounds present, tender with palpation Musculoskeletal: Normal gait, 5/5 strength to all four extremities. Skin: No suspicious rashes or lesions. Capillary refill less than 2 sec. Neurologic: Cranial nerves II-XII intact. Alert and oriented x 3. Motor: No deficits noted. Sensory: Intact bilaterally all 4 extremities. Hematologic/Lymphatic: No ecchymosis, no lymphadenopathy. Objective Last Vital Signs Temp 36.5 C 10/15/24 10:37 Pulse 68 10/15/24 10:37 Resp 18 10/15/24 10:37 BP 108/64 10/15/24 10:37 Pulse Ox 96 10/15/24 10:37 Laboratory Results - last 24 hr 10/14/24 10/14/24 10/14/24 15:00 17:30 18:21 WBC 9.26 RBC 4.47 Hgb 11.3 Hct 36.0 MCV 81 MCH 25.3 L MCHC 31.4 L RDW 14.5 Plt Count 418 H MPV 8.9 Immature Gran % 0.4 Neutrophils % 61.0 Lymphocytes % 31.9 Monocytes % 4.5 Eosinophils % 1.4 Basophils % 0.8 Nucleated RBC % 0.0 Absolute Neutrophils 5.65 Absolute Lymphocytes 2.95 Absolute Monocytes 0.42 Absolute Eosinophils 0.13 Absolute Basophils 0.07 PT 10.7 INR 1.1 VBG pH 7.43 H VBG pCO2 36 L VBG pO2 53 VBG HCO3 23 VBG Total CO2 22 L VBG O2 Saturation 88 VBG Base Excess -1 Sodium 140 Potassium 3.5 Chloride 102 Carbon Dioxide 25.5 Anion Gap 12.5 H BUN 12 Creatinine 0.8 Est GFR (CKD-EPI 2020) 106.11 Glucose 78 Calcium 9.7 Magnesium 1.9 Total Bilirubin 0.3 AST 13 L ALT 21 Alkaline Phosphatase 80 Troponin I 22 18 Total Protein 8.7 H Albumin 3.9 Lipase 30 TSH Serum HCG, Qual Negative Urine Color Yellow Urine Clarity Clear Urine pH 7.0 Ur Specific [place] 1.025 Urine Protein Negative Urine Ketones Negative Urine Blood Trace-lysed H Urine Nitrite Negative Urine Bilirubin Negative Urine Urobilinogen 0.2 Ur Leukocyte Esterase Negative Urine RBC 0-2 Urine WBC Negative Ur Epithelial Cells Negative Urine Crystals Negative Urine Bacteria Few Urine Casts Negative Urine Mucus Trace Urine Other Negative Ur Culture Indicated? No Urine Glucose Negative C. glabrata (PCR) Shanelle species DNA Chlamydia DNA Probe N.gonorrhoeae DNA Probe T. vaginalis (PCR) Bact vaginosis (PCR) 10/14/24 10/14/24 10/15/24 18:43 19:34 06:10 WBC 8.78 RBC 3.87 L Hgb 9.8 L Hct 31.2 L MCV 81 MCH 25.3 L MCHC 31.4 L RDW 14.5 Plt Count 371 MPV 9.3 Immature Gran % 0.2 Neutrophils % 56.5 Lymphocytes % 33.0 Monocytes % 7.1 Eosinophils % 2.5 Basophils % 0.7 Nucleated RBC % 0.0 Absolute Neutrophils 4.96 Absolute Lymphocytes 2.90 Absolute Monocytes 0.62 Absolute Eosinophils 0.22 Absolute Basophils 0.06 PT INR VBG pH VBG pCO2 VBG pO2 VBG HCO3 VBG Total CO2 VBG O2 Saturation VBG Base Excess Sodium 140 Potassium 3.8 Chloride 105 Carbon Dioxide 24.7 Anion Gap 10.3 BUN 10 Creatinine 0.7 Est GFR (CKD-EPI 2020) 124.55 Glucose 79 Calcium 9.0 Magnesium 1.9 Total Bilirubin AST ALT Alkaline Phosphatase Troponin I 19 Total Protein Albumin Lipase TSH 2.41 Serum HCG, Qual Urine Color Urine Clarity Urine pH Ur Specific [place] Urine Protein Urine Ketones Urine Blood Urine Nitrite Urine Bilirubin Urine Urobilinogen Ur Leukocyte Esterase Urine RBC Urine WBC Ur Epithelial Cells Urine Crystals Urine Bacteria Urine Casts Urine Mucus Urine Other Ur Culture Indicated? Urine Glucose C. glabrata (PCR) Cancelled Shanelle species DNA Cancelled Chlamydia DNA Probe Cancelled N.gonorrhoeae DNA Probe Cancelled T. vaginalis (PCR) Cancelled Bact vaginosis (PCR) Cancelled PAWSS Have you Been Recently Intoxicated or Drunk Within the Last 30 days?: No Have you Ever Experienced Previous Episodes of Alcohol Withdrawal?: No Have you ever Experienced Withdrawal Seizures?: No Have you ever Experienced Delirium Tremens(DT)s?: No Have you ever undergone Alcohol Rehabilitation Treatment (i.e, inpt ot outpatient treatment programs)?: No Have you ever Experienced Blackouts?: No Have you ever Combined Alcohol with other Downers within the last 90 days?: No Have you ever Combined Alcohol with any other Substance of Abuse during the last 90 days?: No Positive Blood Alcohol level on Presentation? [PCS.BAL]: No Evidence of Increased Autonomic Activity (i.e. HR>120, tremor, sweating, agitation, nausea)?: No Result: 0 Time Spent with Patient Time Spent with Patient: >50 minutes Time was spent: preparing to see the patient(eg.review tests), ordering medications,tests, procedures, referring, communicating with other health child care supervisor, indepentently interpreting results, counseling the patient and care coordination
--- NOTE | 2024-10-15 16:08 | CHAPLAIN ---
Rachel was sleeping when I visited. I spoke with her mom, Aundrea, and offered support.
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
[2024-10-15] MEDS: LORazepam 2 MG/ML VIAL 0.5 MG IVP (17:15)
[2024-10-15] MEDS: Gabapentin 100 MG CAP PO (17:40)
[2024-10-15 20:09] VITALS: BP 107/61; PULSE 80; RESP 19; TEMP 36.6; O2SAT 97
[2024-10-15 22:59] VITALS: BP 105/78; PULSE 82; RESP 24; TEMP 36.1; O2SAT 97
[2024-10-16 03:26] VITALS: BP 100/66; PULSE 68; RESP 22; TEMP 36.2; O2SAT 98
[2024-10-16] MEDS: MORPHine 2 MG/ML SYR IV (06:52)
[2024-10-16] MEDS: Normal Saline Flush 10 ML SYR IVP (06:52)
[2024-10-16 07:08] VITALS: BP 118/66; PULSE 86; RESP 16; TEMP 36.3; O2SAT 99
[2024-10-16] MEDS: LORazepam 2 MG/ML VIAL 0.5 MG IVP (07:10)
[2024-10-16] MEDS: Multivitamin TAB 1 TAB PO (07:48)
[2024-10-16] MEDS: Norethindrone 5 MG TAB PO (07:48)
[2024-10-16] MEDS: metroNIDAZOLE 500 MG TAB PO (07:48)
[2024-10-16] MEDS: Gabapentin 100 MG CAP PO (07:48)
[2024-10-16] MEDS: levETIRAcetam Oral Solution 100 MG/ML 500 MG PO (07:48)
[2024-10-16] MEDS: Ferrous Sulfate 325 MG TAB PO (07:55)
[2024-10-16 08:05] LABS: HCT 33.7 % (36.0-46.0); HGB 10.5 g/dL (11.2-15.7); MCH 25.1 pg (27.0-33.0); MCHC 31.2 % (32.0-36.0); MCV 80 fL (80-95); Platelet Count 380 10^3/uL (130-400); RBC 4.19 10^6/uL (3.93-5.22); RDW 14.6 % (11.7-14.6); RDW-SD 42.7 fL; WBC 10.72 10^3/uL (4.4-10.8)
--- NOTE | 2024-10-16 09:08 | PDOC.CMPRO ---
Date of service: 10/16/24 Time of Service: 09:08 Care Management Progress Note Discharge Potential Discharge Needs: Surgical F/U Appt Anticipated Barriers to Discharge: None Identified Patient/Family Education Needs: Review discharge instructions, discuss Ask Me Three Transportation: Private vehicle Plan: Anticipate that Rachel will be discharged home with no new services. She will f/u with her OB and her PCP and continue per her prescribed plan of care. Rachel is requesting a Return to Work letter upon discharge. Rachel will transport in a private vehicle. CM will continue to follow. Social Determinants of Health Screening Social Determinants of health last assessed in clinic: 10/15/24 Will the Patient Participate in the Screening?: Yes Do you worry about having a steady place to live?: no Problems where you live: no known problems In the past 12 months, have you had to go without electric, gas, oil or water in your home?: no Has lack of transportation kept you from medical appointments or from doing things needed for daily living?: no Has anyone in your life made you feel unsafe or unsupported?: no How hard is it for you to pay for the very basics like food, housing, medical care, and heating? Would you say it is:: Not hard at all Do you want help finding or keeping work or a job?: I do not need or want help If for any reason you need help with day-to-day activities such as bathing, preparing meals, shopping, managing finances, etc., do you get the help you need?: I don?t need any help How often do you feel lonely or isolated from those around you?: Never Do you speak a language other than [place]an at home?: No Does the patient want assistance with any of the above?: No
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
--- NOTE | 2024-10-16 10:00 | CMDISCH_ITS ---
Date of service: 10/16/24 Time of Service: 10:00 LACE Index Scoring Tool Questions: Length of Stay (in days): 2 Was the patient admitted via the E.D.?: Yes E.D. Visits: 2 Answers: Total Score: 7 Risk of Readmission: Low Risk Care Management Discharge Plan Reason for Hospitalization: syncope Discharge Plan: Rachel will be discharged home with no new services. 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 Patient/Family Education Needs: review of discharge instructions, limitations, follow up plan and discuss Ask Me Three SDLA Health Related Social Needs: Health related social needs food insecurity (Z59.41)
[2024-10-16 16:39] LABS: Chlamydia Result Negative (Negative); GC Result Negative (Negative)
== END 2024-10-16 10:58 | disposition home or self-care (01) ==
LOC: ER 17:39 → MS 21:45
PROVIDERS: Emergency Medicine; Nurse Practitioner Family; Admitting Provider Obstetrics & Gynecology; Emergency Provider Emergency Medicine; PCP Nurse Practitioner Family; Responsible Provider Obstetrics & Gynecology; Visit Provider Obstetrics & Gynecology
DX: R55 Syncope and collapse (principal); T83.84XA Pain due to genitourinary prosthetic devices, implants and grafts, initial encounter; E28.2 Polycystic ovarian syndrome; F41.9 Anxiety disorder, unspecified; F32.A Depression, unspecified; R10.2 Pelvic and perineal pain; N93.9 Abnormal uterine and vaginal bleeding, unspecified; N94.6 Dysmenorrhea, unspecified; Z82.0 Family history of epilepsy and other diseases of the nervous system; E66.9 Obesity, unspecified; E78.5 Hyperlipidemia, unspecified; Z68.39 Body mass index [BMI] 39.0-39.9, adult; Z62.810 Personal history of physical and sexual abuse in childhood
CPT/HCPCS: 58301; 00123; 36415; 80048; 80053; 81513; 82805; 83690; 85027; 87481; 87491; 87591; 87661; 93005; 93308; 96361; 96365; 96367; 96372; 96375; 96376; 99285; 70450; 70551; 71045; 74176; 76830; 76856; 81003; 81015; 83735; 84443; 84484; 84703; 85025; 85610; 87070; 87480; 87510; 87660; 93010; 99222; 99233; G0378; J0696; J1050; J1171; J1885; J1953; J2060; J2270; J2405

== ENCOUNTER 2024-10-30 16:03 | Outpatient (REF) | payer OTHER, SELFPAY | END 2024-10-30 16:04 | disposition home or self-care (01) | LOC: LBN 16:03 | PROVIDERS: PCP Nurse Practitioner Family; Visit Provider Family Medicine | DX: R33.9 Retention of urine, unspecified; R39.15 Urgency of urination; R35.0 Frequency of micturition; B96.29 Other Escherichia coli [E. coli] as the cause of diseases classified elsewhere; R30.0 Dysuria | CPT/HCPCS: 87077; 87086; 87186 ==

== ENCOUNTER 2024-12-16 16:58 | Outpatient (REF) | payer OTHER, SELFPAY | END 2024-12-16 16:59 | disposition home or self-care (01) | LOC: LBN 16:58 | PROVIDERS: PCP Nurse Practitioner Family; Visit Provider Nurse Practitioner Family | DX: R35.0 Frequency of micturition (principal) | CPT/HCPCS: 87086 ==

== ENCOUNTER 2025-04-21 15:49 | Outpatient (REF) | payer OTHER, SELFPAY ==
--- NOTE | 2025-04-21 16:05 | ENDOMET_PTH ---
PATIENT: Rachel Gordillo LOC: [facility] U#:[id number] AGE/SX: 24/F ROOM: RE04/21/[address]: Danae Elaine MD : 2000 BED: DIS: 04/21/2025 SPEC #: [id number] RECD: 04/21/25 17:31 STATUS: LULU REaJnett #: [id number] SAMI: 04/21/25 16:[address]: Danae Elaine DEPT: Surgical Specimen RECD BY: Emily Norris ENTERED: 04/21/25 17:31 SP TYPE: Endomet OTHR DR: Steff Baltazar, DESTINY Tissues: 1 - ENDOMETRIUM BX/ALYSSIAETTE Procedures: GROSS AND MICRO LEVEL 4 Comments: [id number]
== END 2025-04-21 15:50 | disposition home or self-care (01) ==
LOC: LBN 15:49
PROVIDERS: PCP Nurse Practitioner Family; Visit Provider Obstetrics & Gynecology
DX: N85.8 Other specified noninflammatory disorders of uterus (principal)
CPT/HCPCS: 88305